=== PATIENT | female | born 1950 | race Caucasian/White ===

== ENCOUNTER → 2017-11-11 14:33 | Outpatient (REF) | payer MEDICARE, OTHER, SELFPAY ==
--- NOTE | 2017-11-11 12:20 | PAPFT_PTH ---
PATIENT: Cleopatra Adame LOC: [facility] U#:[id number] AGE/SX: 74/F ROOM: RE11/11/[address]: Becca Cope MD : 1950 BED: DIS: SPEC #: [id number] RECD: 11/12/17 12:44 STATUS: TEAGAN ESCOBAR #: [id number] NGOZI: 11/11/17 12:[address]: Becca Cope DEPT: [facility] Cytology RECD BY: Rosie Vila Tissues: 1 - CX/ENDOCX FOR PAP SMEARS Procedures: PAP THIN PREP/UVM Screening HPV DNA PROBE Comments: [id number]
== END ==
LOC: LBN 14:33
PROVIDERS: PCP Family Medicine; Visit Provider Family Medicine
DX: Z12.4 Encounter for screening for malignant neoplasm of cervix (principal); Z11.51 Encounter for screening for human papillomavirus (HPV)
CPT/HCPCS: 88142; 87624

== ENCOUNTER 2018-02-22 00:27 | Outpatient (CLI) | payer MEDICARE, OTHER, SELFPAY ==
--- NOTE | 2018-02-22 09:40 | DI.MAMMO_ITS ---
SYMPTOM/DIAGNOSIS: SCREENING Z12.31 MAMMOGRAM: 02/22 Mammograms were interpreted according to the usual protocol including computer analysis with CAD system, tomosynthesis and C view imaging. There are bilateral mammary implants. Implant displaced views and routine views were obtained. The examination is compared with previous examination of 02/2017. Note is again made of dense irregular capsular calcification associated with the implants. No new mass or clumped microcalcification identified in either breast. Breasts are of moderate density. CONCLUSION: No specific evidence of malignancy at this time. Routine screening examinations are suggested at yearly intervals in this age group according to the ACS/ACR guidelines. Category 1, breast density category B. MQSA ASSESSMENT OF FINDINGS: Negative. Category 1. Patient will receive a letter notifying them of these results. BI-RADS category B. There are scattered areas of fibroglandular density.
== END 2018-02-22 00:47 ==
PROVIDERS: PCP Family Medicine; Visit Provider Family Medicine
DX: Z12.31 Encounter for screening mammogram for malignant neoplasm of breast (principal); Z98.82 Breast implant status
CPT/HCPCS: 77063; 77067

== ENCOUNTER 2018-02-22 01:41 | Outpatient (CLI) | payer MEDICARE, SELFPAY ==
[2018-02-22 12:00] LABS: Iron 61 ug/dL (50-175)
[2018-02-22 12:19] LABS: ALT 28 U/L (12-78); AST 19 U/L (15-37); Albumin 4.1 g/dL (3.4-5.0); Alkaline Phosphatase 84 U/L (46-116); Anion Gap 10.7 mmol/L (3-11); BUN 26 mg/dL (7-18); Bilirubin, Total 0.4 mg/dL (0.2-1.0); CO2 27.3 mmol/L (21.0-32.0); CREATININE 1.02 mg/dL (0.55-1.02); Calcium 9.8 mg/dL (8.5-10.1); Chloride 102 mmol/L (98-107); Estimated GFR 54.39 (mL/min/1.73m2); Ferritin 134 ng/mL (8-388); Glucose 84 mg/dL (70-100); Magnesium 2.2 mg/dL (1.8-2.4); Potassium 4.6 mmol/L (3.5-5.1); Sodium 140 mmol/L (136-145); TSH 1.44 uIU/mL (0.358-3.74); Total Protein 7.8 g/dL (6.4-8.2)
== END 2018-02-22 02:01 ==
PROVIDERS: PCP Family Medicine; Visit Provider Family Medicine
DX: R25.2 Cramp and spasm (principal); L65.9 Nonscarring hair loss, unspecified
CPT/HCPCS: 36415; 80053; 82728; 83540; 83735; 84443

== ENCOUNTER 2019-04-19 01:31 | Outpatient (CLI) | payer MEDICARE, SELFPAY ==
--- NOTE | 2019-04-19 14:00 | DI.MAMMO_ITS ---
EXAM: MG MAMMO SCREENING 60 MIN DUR CLINICAL HISTORY: SCREENING, Z12.31. TECHNIQUE: Bilateral full field digital CC and MLO mammographic images were obtained with 3D tomosyn thesis and utilizing computer aided detection (CAD). Bilateral implant-displaced views were obtained. COMPARISON: Available for comparison. FINDINGS: Masses/Architectural Distortion: None seen. There are bilateral breast implants. These appear stable . Microcalcifications: No suspicious pleomorphic-type are seen. Skin Thickening/Nipple Retraction: None. IMPRESSION: 1. No significant interval change with no specific features of malignancy noted. 2. Unless there is more urgent need, screening mammography is recommended, as per [employer] guidelines. ACR BI-RAD Category- 1 Negative Breast Density - Category B - Scattered areas of fibroglandular density A negative radiographic report should not delay biopsy if a dominant or clinically suspicious mass is present. Up to ten percent of cancers are not identified on mammography. A negative report may reinforce clinical impression. Adenosis and dense breasts may obscure an underlying neoplasm. False positive reports average 6 to 10%. Patient will receive a letter notifying them of these results.
== END 2019-04-19 01:51 ==
PROVIDERS: PCP Family Medicine; Visit Provider Family Medicine
DX: Z12.31 Encounter for screening mammogram for malignant neoplasm of breast (principal); Z98.82 Breast implant status
CPT/HCPCS: 77063; 77067

== ENCOUNTER 2019-09-21 10:30 | Outpatient (CLI) | payer MEDICARE, SELFPAY ==
--- NOTE | 2019-09-21 14:30 | DI.RAD_ITS ---
EXAM: XR HIP RT COMPLETE AP PELVIS INDICATION: right hip pain, M25.551. COMPARISON: No exams were available for comparison TECHNIQUE: 2D digital imaging was performed. FINDINGS: The hip joint spaces are well maintained. There is mild bilateral acetabular spurring. There is mi ld spurring at the greater trochanters and iliac crests. Bilateral tubal ligation clips are incident ally noted. There is some spurring at the lower SI joints. IMPRESSION: Mild degenerative changes. DATA REPOSITORY: RADIATION DOSE DELIVERED:
== END 2019-09-21 10:50 ==
PROVIDERS: PCP Family Medicine; Visit Provider Family Medicine
DX: M25.551 Pain in right hip (principal); M16.11 Unilateral primary osteoarthritis, right hip
CPT/HCPCS: 73502

== ENCOUNTER → 2020-06-15 09:05 | Outpatient (BNVA) | payer MEDICARE, SELFPAY | PROVIDERS: PCP Family Medicine; Referring Provider Family Medicine; Visit Provider Physical Therapy Assistant | DX: Z12.11 Encounter for screening for malignant neoplasm of colon (principal); Z86.010 Personal history of colon polyps ==

== ENCOUNTER 2020-06-27 03:18 | Outpatient (CLI) | payer MEDICARE, SELFPAY ==
[2020-06-27 10:11] LABS: Source Nasal/Nares
[2020-06-27 12:05] LABS: COVID-19 PCR Negative (Negative)
== END 2020-06-27 03:19 | disposition home or self-care (01) ==
LOC: LBO 03:26
PROVIDERS: PCP Family Medicine; Visit Provider Surgery
DX: Z20.822 Contact with and (suspected) exposure to COVID-19 (principal); Z01.818 Encounter for other preprocedural examination
CPT/HCPCS: 87635

== ENCOUNTER 2020-06-29 09:00 | Day surgery (SDC) | payer MEDICARE, SELFPAY ==
[2020-06-29 09:09] VITALS: BP 150/98; PULSE 67; RESP 17; TEMP 36.4; O2SAT 100
[2020-06-29] MEDS: Lactated Ringers 1,000 ML 80 ML IV (09:38)
--- NOTE | 2020-06-29 10:55 | W.PM.DSUDISC ---
Discharge Plan Disposition Patient Disposition: HOME Condition: Good Discharge Details Reason For Visit: colon scope Attending Provider: Gi Brambila Primary Care Provider: Becca Cope Home Meds and New Rx's Prescriptions: Continued meloxicam 15 mg tablet 15 mg PO PRN RF: 0 aspirin [Adult Low Dose Aspirin] 81 mg tablet,delayed release (DR/EC) 81 mg PO DAILY RF: 0 trazodone 50 mg tablet 50 mg PO HS PRN (Reason: insomnia) Qty: 90 RF: 2 Discontinued polyethylene glycol 3350 17 gram/dose powder 238 g PO ONCE Qty: 238 RF: 0 bisacodyl [Dulcolax (bisacodyl)] 5 mg tablet,delayed release (DR/EC) 5 mg PO ONCE Qty: 4 RF: 0 Discharge Instructions Additional Instructions: Findings:Normal Follow up: Repeat in 5 years time if still healthy for anesthesia Please call if you develop: fevers >101.5 Nausea or Vomiting Abdominal pain that is not transient DAY SURGERY UNIT POST COLONOSCOPY INSTRUCTIONS 1. Because there will be medication in your system for the next 24 hours, you may feel a little sleepy. Your coordination will be affected. Therefore: a. Do not drive or operate dangerous equipment for 24 hours. b. Do not drink alcohol beverages for 24 hours (not even beer). c. Plan to go home and rest for the day. 2. Generally there are no restrictions on your activity after a day or so has gone by, but you may feel a bit fatigued for a few days. 3 After you arrive home you may have a light meal and return to a normal diet as you can tolerate it without feeling sick to your stomach. 4. After surgery, you may feel pain or discomfort. This should be only transient, but if it persists please contact your doctor. 5. If there are any questions regarding the findings of your procedure, please feel free to contact your doctor. 6. If you are unable to contact your doctor with a problem, contact the hospital at [phone]. 7. Continue all your regular medications unless directed otherwise. I understand the above instructions and have no questions. Signature of Patient or Responsible Adult Escort Date/Time Name of Responsible Adult Escort Signature of Nurse Date/Time Activity:: No lifting over 20 pounds or strenuous activity x24 hours. Diet:: Small light meals x24 hours Discharge Orders Discharge Orders: Discharge Order (Routine); Ordered 06/29/20 Ordered By: Gi Brambila DS: Diagnosis Discharge Diagnosis (1) Asthma: Status: Acute (2) Smoker: Status: Acute (3) Tubular adenoma: Status: Acute
--- NOTE | 2020-06-29 10:57 | W.COLOREPORT ---
Date of service: 06/29/20 Time of Service: 10:58 Colonoscopy Report Date of procedure: 06/29/20 Pre-op diagnosis general: A polyps Post-op diagnosis procedure note: other (normal) Surgeon: Gi Brambila Anesthesia Type: General:No Airway Estimated blood loss (mL): 0 Pathology: none sent Complications: None Disposition: same day Prep: Miralax/Dulcolax Retraction Time: 8 mins Procedure Description: After informed consent was obtained the patient was taken to the procedure room and placed in a left decubitous position. Monitors were applied and a time out was done. The patients name, date of , procedure, allergies to medications and metal in their body was reviewed. The patient was then sedated. Once sedated and comfortable a rectal exam was done. External exam was normal. Internal exam revealed a normal sphincter tone and no palpable masses. The scope was then introduced and retrofelexed. No internal hemorrhoids were identified. The scope was then advanced to the cecum w/out difficulty. The TI and appendiceal orifice were identified. The prep was good. The scope was then slowly retracted over 8 minutes back into the rectum. There were no polyps/AVMs/diverticula visualized today. The mucosa is pink and healthy. The scope was removed and the patient was woken up and taken back to Same day surgery in stable condition. The patient tolerated the procedure well and there were no immediate complications. Follow up: The patient should follow up in 10 years unless they develop changes in bowel habits or other new gastrointestinal complaints.
[2020-06-29 11:10] VITALS: BP 138/98; PULSE 53; RESP 16; TEMP 36.3; O2SAT 99
== END 2020-06-29 11:42 | disposition home or self-care (01) ==
PROVIDERS: PCP Family Medicine; Visit Provider Surgery
PROC: 0DJD8ZZ Inspection of Lower Intestinal Tract, Via Natural or Artificial Opening Endoscopic (ICD-10-PCS; CPT 45378; principal; 2020-06-29 10:00)
DX: Z12.11 Encounter for screening for malignant neoplasm of colon (principal); Z86.010 Personal history of colon polyps
CPT/HCPCS: G0121

== ENCOUNTER 2020-09-24 02:54 | Outpatient (CLI) | payer MEDICARE, SELFPAY ==
[2020-09-24 15:21] LABS: ALT 29 U/L (14-59); AST 16 U/L (15-37); Albumin 3.8 g/dL (3.4-5.0); Alkaline Phosphatase 83 U/L (46-116); Anion Gap 10.1 mmol/L (3-11); BUN 16 mg/dL (7-18); Bilirubin, Total 0.5 mg/dL (0.2-1.0); CO2 25.9 mmol/L (21.0-32.0); CREATININE 0.9 mg/dL (0.55-1.02); Chloride 107 mmol/L (98-107); Glucose 96 mg/dL (74-106); Potassium 4.6 mmol/L (3.5-5.1); Sodium 143 mmol/L (136-145)
== END 2020-09-24 02:55 | disposition home or self-care (01) ==
LOC: LOS 02:55
PROVIDERS: PCP Family Medicine; Visit Provider Family Medicine
DX: R25.2 Cramp and spasm (principal)
CPT/HCPCS: 36415; 80053

== ENCOUNTER 2020-12-26 10:35 | Outpatient (CLI) | payer MEDICARE, SELFPAY ==
--- NOTE | 2020-12-26 09:30 | DI.RAD_ITS ---
Exam(s) XR WRIST RT COMPLETE EXAM: XR WRIST RT COMPLETE CLINICAL HISTORY: RIGHT WRIST FRACTURE. TECHNIQUE: 2D digital imaging was performed. COMPARISON: No exams were available for comparison FINDINGS: Two in cast views of the right wrist reveal comminuted fracture of the distal radius which involves t he radiocarpal joint. For fracture fragments appear to be in satisfactory alignment. There is also fracture of the base of the ulnar styloid. Scapholunate distance is normal. No significant ulnar variance. IMPRESSION: DATA REPOSITORY: RADIATION DOSE DELIVERED:
== END 2020-12-26 10:36 | disposition home or self-care (01) ==
LOC: DIORS 10:35
PROVIDERS: PCP Family Medicine; Referring Provider Family Medicine; Visit Provider Physician Assistant
DX: S52.591A Other fractures of lower end of right radius, initial encounter for closed fracture; S52.691A Other fracture of lower end of right ulna, initial encounter for closed fracture; W01.0XXA Fall on same level from slipping, tripping and stumbling without subsequent striking against object, initial encounter
CPT/HCPCS: 99213; 73110

== ENCOUNTER 2021-01-02 11:19 | Outpatient (CLI) | payer MEDICARE, SELFPAY ==
--- NOTE | 2021-01-02 10:30 | DI.RAD_ITS ---
Exam(s) XR WRIST RT LIMITED EXAM: XR WRIST RT LIMITED CLINICAL HISTORY: R wrist fx. TECHNIQUE: 2D digital imaging was performed of the right wrist. Two views were obtained. PA and la teral views were obtained. COMPARISON: CR XR WRIST RT COMPLETE from 12/26/2020 FINDINGS: BONES: There has been no change in alignment of the comminuted intra-articular impacted fracture invo lving the distal right radius. No bony destructive lesion is seen. There is a stable ulnar styloid p rocess fracture. JOINTS: The carpal bones are normally aligned. SOFT TISSUE: Normal. The patient's wrist is in a cast. IMPRESSION: Stable distal right radial and ulnar fractures. DATA REPOSITORY: RADIATION DOSE DELIVERED:
== END 2021-01-02 11:20 | disposition home or self-care (01) ==
LOC: DIORS 11:19
PROVIDERS: PCP Family Medicine; Referring Provider Family Medicine; Visit Provider Physician Assistant
DX: S52.501D Unspecified fracture of the lower end of right radius, subsequent encounter for closed fracture with routine healing; S52.601D Unspecified fracture of lower end of right ulna, subsequent encounter for closed fracture with routine healing; X58.XXXD Exposure to other specified factors, subsequent encounter
CPT/HCPCS: 29085; 99213; 73100

== ENCOUNTER 2021-01-30 11:20 | Outpatient (CLI) | payer MEDICARE, SELFPAY ==
--- NOTE | 2021-01-30 11:15 | DI.RAD_ITS ---
Exam(s) XR WRIST RT LIMITED EXAM: XR WRIST RT LIMITED CLINICAL HISTORY: right distal radius and ulna fx f/u. TECHNIQUE: 2D digital imaging was performed. COMPARISON: CR XR WRIST RT LIMITED from 01/02/2021 FINDINGS: Again noted is a comminuted somewhat impacted fracture of the distal radius which is again noted to v iolate the radiocarpal joint. Also fracture of the ulnar styloid again noted with some displacement. No significant ulnar variance. Scapholunate distance is normal. IMPRESSION: Fractures as above. Minimal change from 01/02/2021 DATA REPOSITORY: RADIATION DOSE DELIVERED:
== END 2021-01-30 11:21 | disposition home or self-care (01) ==
PROVIDERS: PCP Family Medicine; Referring Provider Family Medicine; Visit Provider Student in an Organized Health Care Education/Training Program
DX: S52.591D Other fractures of lower end of right radius, subsequent encounter for closed fracture with routine healing (principal); S52.691D Other fracture of lower end of right ulna, subsequent encounter for closed fracture with routine healing; X58.XXXD Exposure to other specified factors, subsequent encounter
CPT/HCPCS: 99213; 73100

== ENCOUNTER 2021-03-12 08:22 | Outpatient (CLI) | payer MEDICARE, SELFPAY ==
--- NOTE | 2021-03-12 08:00 | DI.RAD_ITS ---
Exam(s) XR WRIST RT LIMITED EXAM: XR WRIST RT LIMITED CLINICAL HISTORY: right distal radius fx f/u. TECHNIQUE: 2D digital imaging was performed of the right wrist. Two views were obtained. PA and la teral views were obtained. COMPARISON: CR XR WRIST RT LIMITED from 01/30/2021 FINDINGS: BONES: There has been no change in the displaced ulnar styloid process fracture. There has been cont inued healing of the distal right radial fracture. No change in alignment of the fracture is noted. No new fracture is identified. No bony destructive lesion is seen. JOINTS: The carpal bones are normally aligned. SOFT TISSUE: Normal. IMPRESSION: Interval continued healing of the distal right radial fracture. Stable ulnar fracture. DATA REPOSITORY: RADIATION DOSE DELIVERED:
== END 2021-03-12 08:23 | disposition home or self-care (01) ==
LOC: DIORS 08:22
PROVIDERS: PCP Nurse Practitioner; Referring Provider Nurse Practitioner; Visit Provider Student in an Organized Health Care Education/Training Program
DX: S52.501P Unspecified fracture of the lower end of right radius, subsequent encounter for closed fracture with malunion (principal); S52.601P Unspecified fracture of lower end of right ulna, subsequent encounter for closed fracture with malunion; X58.XXXD Exposure to other specified factors, subsequent encounter
CPT/HCPCS: 99213; 73100

== ENCOUNTER 2021-04-12 15:20 | Outpatient (CLI) | payer MEDICARE, SELFPAY ==
--- NOTE | 2021-04-12 15:15 | RT.EKG_ITS ---
APPROVED REPORT Exam: Resting ECG Reason for Exam: chest discomfort Patient Location: O HR:58 bpm ECG Measurements Heart Rate 58 AXIS AR 177 P 57 QRSd 77 QRS 36 QT 454 T 50 QTc 445 Conclusion Sinus bradycardia...rate< 60 Normal Electrocardiogram
== END 2021-04-12 15:21 | disposition home or self-care (01) ==
LOC: DI.CM 15:20
PROVIDERS: PCP Nurse Practitioner; Visit Provider Family Medicine
DX: R07.89 Other chest pain (principal)
CPT/HCPCS: 93010

== ENCOUNTER 2021-04-29 01:14 | Outpatient (CLI) | payer MEDICARE, SELFPAY ==
--- NOTE | 2021-04-29 15:00 | ETT_ITS ---
APPROVED REPORT Exam: Exercise Treadmill Patient Location: Out-Patient Room/Bed: Stress Nurse: Sandra Rojas RN Ordering Provider:SYDNI VELIZ, Contact Number: [phone] BMI: 25.29 Baseline Rhythm: Sinus Rhythm Indications: Recurrent chest pain Medical History Medical History: Hypertension, past asthma Cardiac Medications: Losartan (starting today) Allergies: Penicillin Cardiac Risk Factors: Hypertension, past asthma, family hx Previous Cardiac Procedures: None Pretest Chest Pain Characteristics: 05/16 midsternal chest tightness Exercise History: Physically active Physical Disabilities: None Lung Sounds: Clear to auscultation Heart Sounds: Regular Stress Test Details Test: Exercise stress testing was performed using a Nikko protocol. Rest Stress HR Resting HR Supine: 61 bpm Max Heart Rate (APMHR): 152 bpm Resting HR Standin bpm Target HR (85% APMHR): 129 bpm Max HR Achieved: 141 bpm % of APMHR: 92 Recovery HR: 76 bpm HR response to stress: Normal HR response to stress BP Resting BP Supine: 192/90 mmHg Resting BP Standin/98 mmHg Max BP: 212/108 mmHg Recovery BP: 174/82 mmHg BP response to stress: Normal blood pressure response to stress. Comment: Pt changing from lisinopril to losartan today. ECG Resting ECG: Sinus Rhythm Ectopy: None Stress ECG: Sinus Tachycardia ST Change: No significant ST segment changes noted Arrhythmia: None Recovery ECG: Sinus Rhythm Recovery ST Change: No significant ST segment changes noted Recovery Arrhythmia: Occasional PVCs, brief burst of trigeminy Clinical Reason for Termination: Fatigue Stress Symptoms: General Fatigue, Dyspnea, Chest Tightness Exercise duration: 6 min57 sec Highest Stage Reached: Stage 3: 3.4 mph at 14% grade. Exercise capacity: 8.51 METs Beasley Treadmill Score: 2.2 Rate Pressure Product: 03337 Stress ECG Conclusion 1. Resting electrocardiogram was within normal limits 2. Patient exercised on the Nikko protocol and completed a workload of 8.51 METS 3. Resting hypertension. Normal hemodynamic response to exercise. The patient achieved 92% of predi cted heart rate for age 4. Chest tightness was present prior to the test, minimally increased during exercise, return to base line post exercise 5. Electrocardiographically there was no evidence of myocardial ischemia 6. Occasional PVCs were seen Beasley Treadmill Score is 2.2 which is Moderate risk. Stress Test Summary STAGE Time (mins) Speed (mph) Grade (%) HR BP SYMPTOMS METS Supine 61 192/90 Standing 64 190/98 Baseline chest tightness 2/10, SpO2 98% 1 3 1.7 10 105 202/94 SpO2 97% 4.6 2 6 2.5 12 133 206/96 SpO2 97% 7 3 9 3.4 14 141 Moderate SOB, SpO2 97% 10.2 1 min recovery 111 212/108 Chest tightness 3/10, SOB improving, SpO2 98% 3 min recovery 81 192/94 SOB resolved, SpO2 98% 6 min recovery 76 174/82 Chest tightness return to baseline 2/10, SpO2 98%
== END 2021-04-29 01:34 ==
PROVIDERS: PCP Nurse Practitioner; Visit Provider Family Medicine
DX: R07.9 Chest pain, unspecified (principal); I10 Essential (primary) hypertension; Z82.49 Family history of ischemic heart disease and other diseases of the circulatory system; I49.3 Ventricular premature depolarization
CPT/HCPCS: 36415; 80053; 80061; 85027; 93016; 93018; 84443; 93017

== ENCOUNTER 2021-04-29 03:43 | Outpatient (CLI) | payer MEDICARE, SELFPAY ==
[2021-04-29 14:38] LABS: HCT 43.6 % (36.0-46.0); HGB 14.2 g/dL (11.2-15.7); MCHC 32.6 % (32.0-36.0); MPV 9.9 fL (8.0-11.0); Platelet Count 274 10^3/uL (130-400); RBC 4.74 10^6/uL (3.93-5.22); RDW 13.2 % (11.7-14.6); RDW-SD 45.6 fL; WBC 6.35 10^3/uL (4.4-10.8)
[2021-04-29 15:57] LABS: ALT 27 U/L (14-59); AST 19 U/L (15-37); Alkaline Phosphatase 101 U/L (46-116); BUN 19 mg/dL (7-18); Bilirubin, Total 0.3 mg/dL (0.2-1.0); CREATININE 0.8 mg/dL (0.55-1.02); Calcium 9.5 mg/dL (8.5-10.1); Calculated LDL 117 mg/dL (<100); Chloride 100 mmol/L (98-107); Cholesterol 251 mg/dL (<200); Glucose 81 mg/dL (74-106); HDL Cholesterol 117 mg/dL (40-60); Potassium 4.1 mmol/L (3.5-5.1); Sodium 137 mmol/L (136-145); TSH (W/Ref FT4) 0.97 uIU/mL (0.36-3.74); Total Protein 7.7 g/dL (6.4-8.2); Triglyceride 85 mg/dL (<150)
== END 2021-04-29 03:44 | disposition home or self-care (01) ==
LOC: LBO 03:43
PROVIDERS: PCP Nurse Practitioner; Visit Provider Family Medicine
DX: I10 Essential (primary) hypertension (principal); R07.9 Chest pain, unspecified
CPT/HCPCS: 36415; 80053; 80061; 85027; 84443

== ENCOUNTER → 2021-06-14 10:34 | Outpatient (BNVA) | payer MEDICARE, SELFPAY | PROVIDERS: PCP Nurse Practitioner; Referring Provider Nurse Practitioner; Visit Provider Student in an Organized Health Care Education/Training Program | DX: G56.01 Carpal tunnel syndrome, right upper limb (principal) | CPT/HCPCS: 99214 ==

== ENCOUNTER 2021-07-15 01:19 | Outpatient (CLI) | payer MEDICARE, SELFPAY ==
--- NOTE | 2021-07-15 13:55 | DI.MAMMO_ITS ---
Exam(s) MG MAMMO SCREENING 60 MIN DUR EXAM: MG MAMMO SCREENING 60 MIN DUR CLINICAL HISTORY: breast cancer screening,z12.39 TECHNIQUE: Mammograms were interpreted according to the usual protocol including computer analysis w [employer] CAD system, tomosynthesis and C-view imaging. Implant displaced views were performed in addition to the routine views. COMPARISON: 2012 through 2019 FINDINGS: The breasts are composed of scattered fibroglandular densities, Breast Density category B. There are bilateral subglandular breast implants with peripheral calcification. The appearance is st able. No suspicious masses or suspicious microcalcifications are seen. No skin thickening or abnormal axillary lymph nodes are seen. There has been no significant change from prior exams. IMPRESSION: BI-RADS Category 1, Negative mammogram Yearly screening mammography is recommended. Breast Density - Category B, scattered fibroglandular densities. A negative radiographic report should not delay biopsy if a dominant or clinically suspicious mass is present. Up to ten percent of cancers are not identified on mammography. A negative report may reinforce clinical impression. Adenosis and dense breasts may obscure an underlying neoplasm. False positive reports average 6 to 10%. Patient will receive a letter notifying them of these results.
== END 2021-07-15 01:39 ==
PROVIDERS: PCP Nurse Practitioner; Visit Provider Family Medicine
DX: Z12.31 Encounter for screening mammogram for malignant neoplasm of breast (principal); Z98.82 Breast implant status
CPT/HCPCS: 77063; 77067

== ENCOUNTER 2021-07-15 02:07 | Outpatient (CLI) | payer MEDICARE, SELFPAY ==
[2021-07-15 09:35] LABS: Source Nasal/Nares
[2021-07-15 12:08] LABS: COVID-19 PCR Negative (Negative)
== END 2021-07-15 02:08 | disposition home or self-care (01) ==
LOC: LBO 02:07
PROVIDERS: PCP Nurse Practitioner; Visit Provider Student in an Organized Health Care Education/Training Program
DX: Z20.822 Contact with and (suspected) exposure to COVID-19 (principal); Z01.818 Encounter for other preprocedural examination
CPT/HCPCS: 87635; U0005

== ENCOUNTER 2021-07-16 06:20 | Day surgery (SDC) | payer MEDICARE, SELFPAY ==
[2021-07-16 06:38] VITALS: BP 135/87; PULSE 72; RESP 17; TEMP 36.2; O2SAT 96
[2021-07-16] MEDS: Lactated Ringers 1,000 ML 80 ML IV (06:47)
[2021-07-16] MEDS: CLINDAMYCIN 900 MG/50 ML BAG 50 MG IVPB (06:53)
--- NOTE | 2021-07-16 06:59 | W.ANESPRE ---
General Info Date of Service Date Performed: 07/16/21 Height: 5 ft 5 in Weight: 70.3 kg Body Mass Index (BMI): 25.7 Surgical Procedure: Operation Date: 07/16/21 07:40 Proposed Procedure Side Surgeon p Wrist ECTR Right Gallo Ornelas MD Meds Allergies and Home Medications Allergies Allergy/AdvReac Type Severity Reaction Status Date / Time Penicillins Allergy Anaphylaxsi Verified 07/16/21 06:44 s oxycodone AdvReac Mild NAUSEA Verified 07/16/21 06:44 Home Medication Medication Instructions Recorded trazodone 50 mg tablet 50 mg PO HS PRN #90 tab 11/26/20 fluoxetine 20 mg capsule 20 mg PO DAILY #90 cap 12/07/20 amlodipine 5 mg tablet 5 mg PO DAILY #30 tab 07/05/21 losartan 100 mg tablet 100 mg PO DAILY #90 tab 07/05/21 Current Visit Medications: Current Medications Generic Name Dose Route Start Last Admin Trade Name Freq PRN Reason Stop Dose Admin Ringer's Solution 1,000 mls @ 80 mls/hr 07/16/21 06:00 07/16/21 06:47 IV 08/14/21 23:59 80 mls/hr INFUSION [place] Administration Clindamycin Phosphate/Dextrose 900 mg in 50 mls @ 50 mls/hr 07/16/21 06:00 07/16/21 06:53 Cleocin In D5w IVPB 07/16/21 18:00 50 mls/hr PREOP IS[place] Administration IV Miscellaneous Supplies 1 each 07/16/21 06:00 Iv Access IV 08/14/21 23:59 DIRECTED [place] Sodium Chloride 0 ml 07/16/21 06:00 Normal Saline Flush 10 Ml Syr IV 08/14/21 23:59 PRN PRN Sodium Chloride 0 ml 07/16/21 06:00 Normal Saline 10 Ml Vial IJ 08/14/21 23:59 DIRECTED PRN Sterile Water 0 ml 07/16/21 06:00 Water,Injection,Sterile 10 Ml Vial IJ 08/14/21 23:59 DIRECTED PRN PFSH Active Problems Active Problems: Problem Status Onset Code Carpal tunnel syndrome, right G56.01 Hyperlipidemia E78.5 Tendon nodule M67.90 Grief F43.21 Essential hypertension I10 Asthma J45.909 Smoker F17.200 Tubular adenoma D36.9 Depressive disorder F32.9 Medical History Medical History Closed fracture of right distal radius and ulna (12/22/20) Kidney stone left Surgical History Surgical History Augmentation mammoplasty B/L History of colonoscopy (~06/29/20) Tobacco Smoking/Tobacco Use Status: Former Tobacco Use Passive smoking exposure: No Second hand exposure: No Alcohol Alcohol Intake: current Alcohol intake frequency: a few times a week Alcohol type: wine Substance Use Substance use: Never Substance use type: does not use Vital Signs and Lab Results Vital Signs Most Recent Vital Signs in EMR: Most Recent Vital Signs Temp Pulse Resp BP Pulse Ox 36.2 C L 72 17 135/87 96 07/16/21 06:38 07/16/21 06:38 07/16/21 06:38 07/16/21 06:38 07/16/21 06:38 Lab Results Blood Type / Crossmatch: No Data to Display Complete Blood Count: No Data to Display Complete Metabolic Panel: No Data to Display Liver Function Panel: No Data to Display Coagulation Panel: No Data to Display Cardiac Panel: No Data to Display Arterial Blood Gas: No Data to Display Venous Blood Gas: No Data to Display Pancreas Panel: No Data to Display Thyroid Panel: No Data to Display Infectious Disease: Coronavirus (COVID-19)(PCR) Negative (Negative) 07/15/21 09:20 07/15/21 Coronavirus 2019 Source Nasal/Nares 07/15/21 09:20 07/15/21 Blood Cultures: No Data to Display Toxicology Panel: No Data to Display Anesthesia Assessment and Plan Anesthesia History Personal History: No History of Anesthesia Complications Family History: No Family History of Anesthesia Complications Exercise Tolerance Exercise Tolerance: Metabolic Equivalents>4 Pertinent Negatives Pertinent Negatives: No Symptoms of GERD, No Major Cardiovascular Symptoms or Complaints, No Major Pulmonary Symptoms or Complaints and No History of CVA/TIA Cardiac & Pulmonary Exam Cardiac Exam: Normal S1/S2 Heart Sounds Pulmonary Exam: Clear Bilateral Breath Sounds Implantable Cardiac Device Does patient have a Pacemaker or an ICD?: No Airway Exam Known Difficult Airway: No Mallampati Class: 1 Mouth Opening: Normal (> 3cm) Thyromental Distance: Greater than 3 cm Neck Range of Motion: Full ROM Neck Circumference: Normal Teeth Condition: Normal Dentition ASA Classification ASA Score: ASA 2 Emergency Case?: No NPO Status NPO Status: NPO Clears >2 hours, Solids >8 hours Anesthesia Plan Resuscitation Status: Full Code Anesthesia Technique: General Anesthesia Airway Planned: Natural Airway Monitors Used: Standard Monitors
[2021-07-16 07:01] VITALS: BMI 25.7
--- NOTE | 2021-07-16 07:18 | HPE_ITS ---
Assessment and Plan Assessment and plan (1) Carpal tunnel syndrome, right: Status: Acute Assessment and plan: Cleopatra is a 71-year-old who is status post right distal radius fracture with and. She unfortunately developed worsening carpal tunnel syndrome. She has failed conservative, nonoperative, options and therefore is here for carpal tunnel release. Once again, reviewed carpal tunnel release in detail. I answered all of her questions. I reviewed the risk of the procedure to include bleeding, infection, pain, stiffness, continued numbness, continued symptoms, incomplete release, need for repeat procedures. Despite these risk, she elects to proceed. History of Present Illness Narrative: Cleopatra is a 71-year-old who has carpal tunnel syndrome about the right hand status post right distal radius nonunion. She has exhausted nonoperative options and is here today for endoscopic carpal tunnel release. Please see the previous office note for complete detailed history. She has no acute medical issues. No medical changes. Review of Systems All systems reviewed & are unremarkable except as noted in HPI and below PFSH All Active Problems Carpal tunnel syndrome, right (Acute) Hyperlipidemia (Acute) 04/2021- high HDL Tendon nodule (Acute) right palm Grief (Chronic) Essential hypertension (Acute) Asthma (Acute) Smoker (Acute) Tubular adenoma (Acute) 04/11/15; DR. MELGAR Depressive disorder (Acute) Medical History Closed fracture of right distal radius and ulna (12/22/20) Kidney stone left Surgical History Augmentation mammoplasty B/L History of colonoscopy (~06/29/20) Family History Mother Heart disease Stroke Father No problems noted. Sister No problems noted. Brother Neoplasm Grandfather Neoplasm ESOPHAGEAL Grandmother Stroke Social History Smoking/Tobacco Use Status: Former Tobacco Use Quit Date: 04/06/85 Second Hand Exposure: No Smoking risk assessment performed?: Yes Alcohol Intake: current Alcohol Intake frequency: a few times a week Alcohol type: wine Drug use: Never Substance use type: does not use Caregiver/Support person: No Housing: house Communication Needs: None Pets and animals: No Sexually active: No Do you think of yourself as: straight/heterosexual Current gender identity: female What is your relationship status?: How often do you talk on the phone with friends or family?: once per week How often do you attend shinto or temple services?: decline to answer Do you belong to any clubs or organized social groups?: no Panel score (0-1 are the most socially isolated patients): 0 What type of physical activity do you participate in: walking Frequency: daily Vicky/Hoahaoism: None Special vicky needs: No Seatbelt use: always Drive intox or ride w/intox street flusher driver: No Do you feel safe at home: Yes Additional Social history: lives alone Meds Allergies and Home Medications Allergies Allergy/AdvReac Type Severity Reaction Status Date / Time Penicillins Allergy Anaphylaxsi Verified 07/16/21 06:44 s oxycodone AdvReac Mild NAUSEA Verified 07/16/21 06:44 Home Medications Medication Instructions Recorded Confirmed Type trazodone 50 mg tablet 50 mg PO HS PRN #90 tab 11/26/20 07/16/21 Rx fluoxetine 20 mg capsule 20 mg PO DAILY #90 cap 12/07/20 07/16/21 Rx amlodipine 5 mg tablet 5 mg PO DAILY #30 tab 07/05/21 07/16/21 Rx losartan 100 mg tablet 100 mg PO DAILY #90 tab 07/05/21 07/16/21 Rx Exam Narrative Exam Narrative: No acute distress. Alert and orient x3. Resp Auscultation: clear to auscultation bilaterally Cardio Rate: regular rate Rhythm: regular rhythm Results Last Vital Signs Temp 36.2 C L 07/16/21 06:38 Pulse 72 07/16/21 06:38 Resp 17 07/16/21 06:38 BP 135/87 07/16/21 06:38 Pulse Ox 96 07/16/21 06:38
--- NOTE | 2021-07-16 07:21 | W.PM.DSUDISC ---
Discharge Plan Disposition Patient Disposition: HOME Condition: Good Discharge Details Reason For Visit: Right Carpal Tunnel Syndrome Attending Provider: Gallo Ornelas Primary Care Provider: pAarna Beck Home Meds and New Rx's Prescriptions: New acetaminophen 500 mg tablet 1,000 mg PO Q8H PRN (Reason: pain) Qty: 90 3RF ibuprofen 600 mg tablet 600 mg PO TID PRN (Reason: pain) Qty: 90 3RF Continued amlodipine 5 mg tablet 5 mg PO DAILY Qty: 30 0RF losartan 100 mg tablet 100 mg PO DAILY Qty: 90 3RF trazodone 50 mg tablet 50 mg PO HS PRN (Reason: insomnia) Qty: 90 2RF fluoxetine 20 mg capsule 20 mg PO DAILY Qty: 90 4RF Discharge Instructions Stand Alone Forms: Johnson Sharma Tunnel Release Referrals: Gallo Ornelas MD [ [facility] STAFF PHYSICIAN] - Activity:: Activity as Tolerated Remove Dressings/Wound Care:: 48 hours Shower/Bathe:: 48 hours Diet:: As Tolerated Discharge Orders Discharge Orders: Discharge Order (Routine); Ordered 07/16/21 Ordered By: Gallo Ornelas DS: Diagnosis Discharge Diagnosis (1) Carpal tunnel syndrome, right: Status: Acute
[2021-07-16] MEDS: Sodium Bicarbonate 50 MEQ/50 ML VIAL (07:34)
[2021-07-16 07:44] VITALS: BP 88/60; PULSE 65; RESP 16; TEMP 36.3; O2SAT 98
--- NOTE | 2021-07-16 08:11 | W.ANESPOSTOP ---
Postoperative Evaluation Date, Time and Location Date Performed: 07/16/21 Time Performed: 07:44 Patient Location: Day Surgery Unit Vital Signs Most Recent Imported Vital Signs: Most Recent Vital Signs Temp Pulse Resp BP Pulse Ox 36.3 C L 65 16 88/60 L 98 07/16/21 07:44 07/16/21 07:44 07/16/21 07:44 07/16/21 07:44 07/16/21 07:44 Pain Score Most Recent Pain Score: Most Recent Pain Score Pain Level 0 07/16/21 07:44 Assessment Mental Status: Awake (Alert & Oriented to Patient Baseline) Airway and Respiratory Function: Patent airway with normal (patient baseline) respiratory exam Cardiovascular Function: Hemodynamically Stable Hydration Status: Adequately Hydrated Nausea & Vomiting: No Nausea or Vomiting Pain: Pt. Denies Any Pain Peripheral Nerve Block: Patient did not receive a nerve block
[2021-07-16 08:28] VITALS: BP 104/77; PULSE 66; RESP 16; TEMP 36.4; O2SAT 97
--- NOTE | 2021-07-16 09:34 | NUR.NOTE ---
Nursing Note: 0915a: OBED Ro passed by Pt's room, Pt requested to use restroom. Aixa assisted her to the restroom. OBED Kruse then stepped into backroom of the unit kitchen, when she came out, Jia noticed the Pt's walking around the corner. Aixa wasn't able to catch the Pt before she got out the door. 0933a:Jayce in Security was notified by Tanya Dai RN, that Patient walked out of DSU by herself. Attempts were made by CHAO Martínez and Ann GUIDRY, to view patient outside of the hospital, she was not found. Pt's ride was notified again to request her to call DSU so we could ensure patient was able to connect with her responsible adult, since the Pt Left DSU unattended.
--- NOTE | 2021-07-16 22:45 | ROE_ITS ---
Date of service: 07/16/21 Time of Service: 07:45 Operative Note Operative Note PRE-OP DIAGNOSIS: Right Carpal Tunnel Syndrome POST-OP DIAGNOSIS: same PROCEDURE: Right Endoscopic Carpal Tunnel Release SURGEON: Gallo Ornelas ANESTHESIA TYPE: General:No Airway Refer to Anesthesia Record ESTIMATED BLOOD LOSS: 0 PATHOLOGY: none sent TOURNIQUET TIME: 5 COMPLICATIONS: None Patient was transported to: same day Patient's condition: stable Indications: I have seen Cleopatra in clinic for symptoms of carpal tunnel syndrome. The numbness, tingling, and pain limited function. Clinical exam findings with nerve conduction tests confirmed the diagnosis of carpal tunnel syndrome. Nonoperative measures such as bracing, time, activity modifications had been tried but disability and pain persisted. I discussed carpal tunnel release with the patient. I reviewed the risks of the procedure to include, but not limited to, bleeding, infection, pain, stiffness, incomplete release, damage to nerves or vessels, persistent numbness, recurrence. Despite these risks, the patient elected to proceed. Findings: There was tightened carpal tunnel. This was dilated and released successfully with the endoscopic with increased space within the tunnel. The antebrachial fascia was released proximally freeing the median nerve at the wrist. Procedure Description: Cleopatra was greeted in the preoperative holding area where the correct side was identified and marked. The consent was reviewed with the patient and signed. The history and physical was updated. All questions were answered. Cleopatra was taken back to the operating room. The patient was placed into the supine position on the operating room table with the right arm on an arm board. A nonsterile tourniquet was placed high onto the arm. All bony prominences were well padded. Prophylactic antibiotics in the form of Clindamycin were administered. The right arm was then prepped with Chloraprep and draped in a standard fashion with stockinette and extremity drape. A timeout to confirm correct identity, side and site, procedure, allergies, anesthesia, and medical concerns was performed. The surgical site was marked in the volar wrist creases in line with the radial border of the fourth ray. This area was anesthetized with approximately 6cc of 1% Lidocaine. The limb was then exsanguinated with an Esmarch. The skin was incised with a 15 blade, approximately 1cm. The skin only was cut and the deeper tissue was dissected bluntly with a tenotomy scissor, avoiding passing nerve and venous structures. The fascia was penetrated and opened bluntly. A two-prong skin hook was placed under this proximal fascial edge. A series of hamate finders were used to identify and dilate the carpal tunnel. Synovial elevator was used to free synovial attachments to the underside of the zamudio sverse carpal ligament. My thumb was kept in the palm to maggie the distal extent of the carpal tunnel and correctly position the hand. The Microaire endoscope was inserted without difficulty and without resistance. Excellent visualization showed horizontally running fibers of the transverse carpal ligament (TCL). The distal extent of the TCL was visualized and the end of the scope palpated with the thumb. The blade was elevated and withdrawn from distal to proximal. The TCL was split into two flaps. The endoscope was reinserted to confirm complete release and any remnant ligament was incised. The scope was withdrawn and the proximal aspect of the carpal tunnel was grossly inspected and appeared release with the median nerve visible. The antebrachial fascia at the level of the wrist was then freed from the overlying skin and then the underlying median nerve with blunt dissection. This was transected longitudinally for about 3cm proximal to the wrist incision. The wound was then irrigated with easy flow of irrigant distally and proximally. The incision was closed with a single 4-0 Nylon suture. The wound was dressed with Xeroform, Gauze, Kerlix and Bernard. The tourniquet was deflated with the initial dressing and held with some pressure. Blood flow returned easily to all digits with capillary refill less than 2 seconds. The patient tolerated the procedure well and was returned to the Same Day Surgery area in a stable condition suffering no known complication.
== END 2021-07-16 09:15 | disposition home or self-care (01) ==
PROVIDERS: PCP Nurse Practitioner; Visit Provider Student in an Organized Health Care Education/Training Program
PROC: 01N54ZZ Release Median Nerve, Percutaneous Endoscopic Approach (ICD-10-PCS; CPT 29848; principal; 2021-07-16 07:30)
DX: G56.01 Carpal tunnel syndrome, right upper limb (principal); I10 Essential (primary) hypertension; E78.5 Hyperlipidemia, unspecified; J45.909 Unspecified asthma, uncomplicated
CPT/HCPCS: 29848; J2001; J2704

== ENCOUNTER → 2021-07-26 09:42 | Outpatient (BNVA) | payer MEDICARE, SELFPAY | PROVIDERS: PCP Nurse Practitioner; Referring Provider Nurse Practitioner; Visit Provider Student in an Organized Health Care Education/Training Program | DX: G56.01 Carpal tunnel syndrome, right upper limb (principal) ==

== ENCOUNTER → 2021-09-09 08:40 | Outpatient (BNVA) | payer MEDICARE, SELFPAY | PROVIDERS: PCP Nurse Practitioner; Referring Provider Nurse Practitioner; Visit Provider Student in an Organized Health Care Education/Training Program | DX: G56.01 Carpal tunnel syndrome, right upper limb (principal) ==

== ENCOUNTER 2023-03-19 16:58 | Emergency (ER) | payer MEDICARE, SELFPAY ==
[2023-03-19] VITALS (39 sets, daily range): BP systolic 103–218; BP diastolic 39–198; PULSE 65–98; RESP 11–32; TEMP 36.8; O2SAT 94–100
--- NOTE | 2023-03-19 17:07 | W.ED.GENAD ---
Discharge Plan Disposition Patient Disposition: Home Condition: Stable Discharge Details Clinical Impression: Walking pneumonia Primary Care Provider: Zeina Norman ED Provider: Yannick Gutierrez Home Meds and New Rx's Prescriptions: New azithromycin 250 mg tablet 250 mg PO DAILY 4 Days Qty: 4 0RF Rx Instructions: start on day 2 of therapy doxycycline hyclate 100 mg tablet 100 mg PO BID 7 Days Qty: 14 0RF Continued atorvastatin 10 mg tablet 10 mg PO QHS Qty: 90 3RF losartan 100 mg tablet 100 mg PO DAILY Qty: 90 3RF trazodone 50 mg tablet 50 mg PO HS PRN (Reason: insomnia) Qty: 90 2RF amlodipine 10 mg tablet 10 mg PO DAILY Qty: 90 4RF fluoxetine 20 mg capsule 20 mg PO DAILY Qty: 90 4RF ibuprofen 600 mg tablet 600 mg PO TID PRN (Reason: pain) Qty: 90 3RF Discharge Instructions Instructions: Doxycycline (By mouth), Azithromycin (By mouth), Pneumonia (ED) Additional Instructions: You were seen in the emergency department for your cough of many weeks onset that is productive and had some specks of possible blood in your sputum today. Your D-dimer is age-adjusted negative I do not believe you have a blood clot in your lungs, you have no sharp chest pains and no significant shortness of breath and you are nontachycardic here in the department. This is likely a bacterial lower respiratory infection that I am going to treat with 2 different antibiotics to cover a wide range of bacterial pathogens. Please use therapeutic dosing of Tylenol (acetamenophen) & Advil (ibuprofen) in an alternating fashion as follows: Take 1000mg of Tylenol every 6 hours without missing doses- that is 4 times per day. [facility] in between the Tylenol dosings, take 400-600mg of Advil also on a 6 hour schedule, that is also 4 times per day. The daily maximum dosing of Tylenol is 4000mg, and the daily maximum dosing of Advil is 2400mg. This is safe to do for weeks. Please note that some common cold medications & prescription pain medications may contain acetamenophen and you need to read OTC drug labels and factor that in to maximum daily dosings. Take Mucinex to help loosen your mucus and expel any buildup in your lungs. Please return for any significant shortness of breath or fevers not responding to treatment or any increase in chest pain despite treatment. Referrals: Zeina Norman NP [Primary Care Provider] - Discharge Data Discharge Date/Time-TO BE ENTERED AT DEPARTURE: 03/19/23 20:34 Medical Decision Making This dictation utilizes [id number] dictation software and may contain unedited grammatical errors. 72 y/o F presents to ED today with a chief complaint of productive cough for the past few weeks, worse at night, coughed up some specks of blood in her sputum today. States deep breathing causes cough, feels uncomfortable but denies overt chest pain, coughing source of discomfort. Onset and characteristics include a few weeks of malaise and cough, feels like she cannot get fluid out. Patients' medical history: negative for cardiac or pulmonary history. Family and social history: nonsmoker. Pertinent exam findings / vital signs include lungs very coarse and rhonchorous, borderline pleural friction rub, no hypoxia, non-tachycardic, benign cardiac exam, neuro intact, benign abdomen, nontoxic vitals. Differential / pathologies of concern include PNA, walking PNA, bronchitis, PE, ACS, pneumonitis. Diagnostic studies of: -CBC, CMP, D-Dimer, Trop I, BNP, Mg++, EKG, CXR. -D-dimer age adjusted negative, YEARS criteria negative -CMP benign -Trop I neg -BNP neg, no R-heart strain -EKG shows no signs of ischemia -CXR shows no signs of pneumonia but I do question some opacity in lateral view @ base Interventions of: -DuoNeb, IVF, Outpatient ABX for cough lasting > 3 weeks. ED Course/Assessment/Plan: 72-year-old otherwise healthy female patient presents without hypoxia or tachycardia or chest pain with multiple weeks of cough and chest congestion. Cardiac studies are negative there is no overt focal pneumonia seen on her chest today read by V rad but I do question opacity on lateral lead at the base with the patient severely rhonchorous rhonchorous to auscultation I think it is reasonable to trial dual antibiotic therapy for pneumonia with azithromycin and doxycycline due to the patient's amoxicillin anaphylactic allergy. Counseled the patient on regular use of Tylenol and ibuprofen and strict return criteria for any further hemoptysis, chest pain or severe shortness of breath. Findings not consistent with sepsis, hypoxemic respiratory failure, ACS. Disposition of Walking Pneumonia. Patient verbalized understanding of the plan and return to ED criteria and engaged in shared decision making. Medical Records Medical records reviewed: Yes I reviewed the patient's medical records. Imaging Data Radiologic Study: Imaging: X-Ray Radiologist's impression: Exam: XR Chest Exam date and time: 03/19/2023 6:52 PM Age: 72 years old Clinical indication: Cough TECHNIQUE: Imaging protocol: Radiologic exam of the chest. Views: 2 views. COMPARISON: CR Shoulder - 2 Views 09/25/2016 10:58 AM FINDINGS: Tubes, catheters and devices: Breast implants noted. Lungs: Unremarkable. No consolidation. Pleural spaces: Unremarkable. No pleural effusion. No pneumothorax. Heart/Mediastinum: Unremarkable. No cardiomegaly. Vasculature: Aortic ectasia. Bones/joints: Right humeral head deformity consistent with previous fracture. IMPRESSION: No evidence for acute abnormality in the chest. Dictated and Authenticated by: Maeve Bernal MD. Ordering:GLEN Lanier MD Lab Data Lab results reviewed: Yes I reviewed the patient's lab results. Labs: 03/19/23 17:30 Blood Blood Culture - Pending 03/19/23 17:44 Blood Blood Culture - Pending Laboratory Tests Range/Units 03/19/23 03/19/23 17:30 17:40 WBC (4.4-10.8) 10^3/uL 6.28 RBC (3.93-5.22) 10^6/uL 4.62 Hgb (11.2-15.7) g/dL 13.8 Hct (36.0-46.0) % 41.0 MCV (80-95) fL 89 MCH (27.0-33.0) pg 29.9 MCHC (32.0-36.0) % 33.7 RDW (11.7-14.6) % 13.5 Plt Count (130-400) 10^3/uL 313 MPV (8.0-11.0) fL 9.4 Immature Gran % 0.2 Neutrophils % 43.6 Lymphocytes % 35.7 Monocytes % 10.0 Eosinophils % 9.2 Basophils % 1.3 Nucleated RBC % (0.0-0.3) % 0.0 Absolute Neutrophils (1.2-6.7) 10^3/uL 2.74 Absolute Lymphocytes (1.2-3.4) 10^3/uL 2.24 Absolute Monocytes (0.1-0.8) 10^3/uL 0.63 Absolute Eosinophils (0.0-0.7) 10^3/uL 0.58 Absolute Basophils (0.0-0.2) 10^3/uL 0.08 ESR (0-30) mm/hr 11 D-Dimer (<500) ng/mlFEU 501 H VBG Lactate (0.6-1.4) mmol/L 1.0 Sodium (136-145) mmol/L 140 Potassium (3.5-5.1) mmol/L 3.9 Chloride (98-107) mmol/L 105 Carbon Dioxide (21.0-32.0) mmol/L 26.8 Anion Gap (3-11) mmol/L 8.2 BUN (7-18) mg/dL 20 H Creatinine (0.55-1.02) mg/dL 0.9 Est GFR (CKD-EPI 2020) (mL/min/1.73m2) 68.77 Glucose (74-106) mg/dL 104 Calcium (8.5-10.1) mg/dL 9.3 Total Bilirubin (0.2-1.0) mg/dL 0.2 AST (15-37) U/L 17 ALT (14-59) U/L 32 Alkaline Phosphatase (46-116) U/L 119 H Troponin I (<or=60) ng/L < 50 C-Reactive Protein (0.0-0.3) mg/dL 0.10 NT-Pro-B Natriuret Pep (<300) pg/mL 23 Total Protein (6.4-8.2) g/dL 7.6 Albumin (3.4-5.0) g/dL 3.8 Procalcitonin ng/mL < 0.1 COVID-19 Source NASOPHARYNX SARS-CoV-2 (PCR) (Negative) Negative Monoscreen (Negative) Negative Influenza Type A (PCR) (Negative) Negative Influenza Type B (PCR) (Negative) Negative RSV (PCR) (Negative) Negative HPI General Date/Time Provider Initiated Documentation: 03/19/23 17:01. HPI Narrative: 72 year-old female presents to ED today by POV/ambulating with a chief complaint of wet cough and congestion for one month, had some flecks of blood in her sputum today. Quality described as irritation and burning sensation with cough in her chest, no radiation to significant SOB, nausea/vomiting, diarrhea, body aches, does endorse some SOB at night. Severity is described as 7/10. Palliating factors include OTC cold medicines without relief. Provoking factors include nothing specific. Patient not anticoagulated. Related Data Home Medications Medication Instructions Recorded Confirmed ibuprofen 600 mg tablet 600 mg PO TID PRN pain #90 tabs 07/16/21 03/20/23 atorvastatin 10 mg tablet 10 mg PO QHS #90 tabs 04/28/22 03/20/23 losartan 100 mg tablet 100 mg PO DAILY #90 tabs 04/28/22 03/20/23 trazodone 50 mg tablet 50 mg PO HS PRN insomnia #90 tabs 06/06/22 03/20/23 amlodipine 10 mg tablet 10 mg PO DAILY #90 tabs 09/15/22 03/20/23 fluoxetine 20 mg capsule 20 mg PO DAILY #90 caps 01/12/23 03/20/23 azithromycin 250 mg tablet 250 mg PO DAILY 4 days #4 tabs 03/19/23 03/20/23 doxycycline hyclate 100 mg tablet 100 mg PO BID pneumonia 7 days #14 03/19/23 03/20/23 tabs Previous Rx's Medication Instructions Recorded ibuprofen 600 mg tablet 600 mg PO TID PRN pain #90 tabs 07/16/21 atorvastatin 10 mg tablet 10 mg PO QHS #90 tabs 04/28/22 losartan 100 mg tablet 100 mg PO DAILY #90 tabs 04/28/22 trazodone 50 mg tablet 50 mg PO HS PRN insomnia #90 tabs 06/06/22 amlodipine 10 mg tablet 10 mg PO DAILY #90 tabs 09/15/22 fluoxetine 20 mg capsule 20 mg PO DAILY #90 caps 01/12/23 azithromycin 250 mg tablet 250 mg PO DAILY 4 days #4 tabs 03/19/23 doxycycline hyclate 100 mg tablet 100 mg PO BID pneumonia 7 days #14 03/19/23 tabs Allergies Allergy/AdvReac Type Severity Reaction Status Date / Time Penicillins Allergy Anaphylaxsi Verified 03/19/23 17:06 s oxycodone AdvReac Mild NAUSEA Verified 03/19/23 17:06 General Stated Complaint: RespSymp PARKER: 3 Review of Systems All systems reviewed & are unremarkable except as noted in HPI and below PFSH All Active Problems (Updated 03/19/23 @ 20:15 by CATY Berg) Walking pneumonia (Acute) Onychomycosis (Acute) Hyperlipidemia (Chronic) 04/2021- high HDL Tendon nodule (Acute) right palm Grief (Chronic) Essential hypertension (Chronic) Asthma (Chronic) Smoker (Acute) Tubular adenoma (Acute) 04/11/15; DR. MELGAR Depressive disorder (Acute) Medical History Closed fracture of right distal radius and ulna (12/22/20) Kidney stone left Surgical History Augmentation mammoplasty B/L Carpal tunnel syndrome, right S/P ECTR: 07/16/2021 History of colonoscopy (~06/29/20) Family History Mother Heart disease Stroke Father No problems noted. Sister No problems noted. Brother Neoplasm Grandfather Neoplasm ESOPHAGEAL Grandmother Stroke Social History (Updated 04/30/22 @ 16:38 by Cristy Lewis) Smoking/Tobacco Use Status: Former Tobacco Use Quit Date: 04/06/85 Second Hand Exposure: No Smoking risk assessment performed?: Yes Alcohol Intake: current Alcohol Intake frequency: a few times a week Alcohol type: wine Drug use: Never Substance use type: does not use Caregiver/Support person: No Household members: children Housing: house Communication Needs: None Pets and animals: No Sexually active: No Do you think of yourself as: straight/heterosexual Current gender identity: female What is your relationship status?: How often do you talk on the phone with friends or family?: once per week How often do you get together with friends or relatives?: decline to answer How often do you attend sikhism or mormon services?: decline to answer Do you belong to any clubs or organized social groups?: no Panel score (0-1 are the most socially isolated patients): 0 What type of physical activity do you participate in: walking Duration: 15-30 minutes/day Frequency: 3-4 times per week Vicky/Worship: None Special vicky needs: No Seatbelt use: always Drive intox or ride w/intox milk pickup driver: No Do you feel safe at home: Yes Additional Social history: lives alone Exam Narrative Exam Narrative: GENERAL APPEARANCE: Well-nourished, non-toxic, awake and alert, atraumatic, no acute distress. SKIN: Warm, pink, dry, intact, without rashes/lesions/ulcerations. HEAD: Normocephalic, atraumatic, normal hair distribution for gender/age. EYES: Pupils PERRLA, EOMs intact without nystagmus, normal conjunctiva, no exudates on lids/lashes. ENT: Nares patent, no circumoral cyanosis, no facial swelling NECK: Supple, trachea midline, painless cervical ROM. LUNGS/CHEST: Lungs coarse and adventitious with diffuse rhonchi bordering on pleural friction-rub, non-labored respirations, normal A/P diameter, symmetrical expansion, no chest wall deformity HEART (CV/PV): Regular rate and rhythm without murmur, no peripheral edema, no JVD. ABDOMEN: Soft, non-distended, no guarding. MSK: Normal ROM, no swelling/deformity to bilateral UEs or LEs, moving all extremities without weakness, no cyanosis, spine midline without tenderness, normal curvature. NEURO: Mental Status AAOx4 - alert to person, place, time, events No facial droop, no forehead involvement. Motor: No focal weakness - strength 5/5 in bilateral UEs and LEs, proximal and distal, symmetric. Sensory: sensation intact to light touch globally. Gait normal: patient ambulated without ataxia into ED room. PSYCH: euthymic, cooperative, pleasant, appropriate speech Course 03/19/23 17:15 Albuterol/Ipratropium [Duoneb Updraft] 3 ml UPD NOW ONE 03/19/23 17:16 ED EKG Stat EKG Nursing/RT Intervention .STAT 03/19/23 17:30 BNP [NT-proBNP] Stat CRP [C-Reactive Protein] Stat Comprehensive Metabolic Panel Stat Lactate Stat Procalcitonin Stat Troponin [Cardiac Troponin I] Stat D-Dimer [COAG] Stat Complete Blood Count w/Diff [HEMO] Stat COVID/FLU/RSV PCR [SERO] Stat Blood Culture ( Age => 10 Yrs) Stat 03/19/23 17:40 ESR [HEMO] Stat Falls Screening [SERO] Stat 03/19/23 18:18 Normal Saline [Saline 1000ml Bag] 1,000 ml IV BOLUS 03/19/23 18:30 XR chest 2V PA & lateral [RAD] Stat 03/19/23 20:17 Azithromycin [Zithromax] 500 mg PO TODAY ONE Doxycycline Hyclate [Vibramycin] 100 mg PO NOW ONE Vital Signs Vital signs: Vital Signs Temperature 36.8 C 03/19/23 17:04 Pulse 90 03/19/23 17:04 Respiratory Rate 18 03/19/23 17:04 Blood Pressure 147/95 H 03/19/23 17:04 Pulse Oximetry 98 03/19/23 17:04 Temperature 36.8 C 03/19/23 17:04 Temperature Source Oral 03/19/23 17:04 Pulse 90 03/19/23 17:04 Respiratory Rate 18 03/19/23 17:04 Blood Pressure 147/95 H 03/19/23 17:04 Blood Pressure Position Sitting 03/19/23 17:04 Pulse Oximetry 98 03/19/23 17:04 Oxygen Delivery Method Room Air 03/19/23 17:04 Oxygen Flow Rate 0 03/19/23 17:04 Pain Level 0 03/19/23 17:04
--- NOTE | 2023-03-19 17:15 | RT.EKG_ITS ---
APPROVED REPORT Exam: Resting ECG Reason for Exam: chest pain, cough Patient Location: E HR:63 bpm ECG Measurements Heart Rate 63 AXIS CO 178 P 31 QRSd 76 QRS 66 QT 432 T 70 QTc 444 Conclusion Sinus rhythm...normal P axis, V-rate 60- 99 NSR normal axis, normal intervals NO STEMI no significant changes from previous
[2023-03-19] MEDS: Albuterol/Ipratropium 3 ML UPD VIAL UPD (17:45)
[2023-03-19 17:50] LABS: Abs Immature Grans 0.01 10^3/uL (0.0-0.06); Absolute Basophil Count 0.08 10^3/uL (0.0-0.2); Absolute Eosinophil Count 0.58 10^3/uL (0.0-0.7); Absolute Lymphocyte Count 2.24 10^3/uL (1.2-3.4); Absolute Monocyte Count 0.63 10^3/uL (0.1-0.8); Absolute Neutrophil Count 2.74 10^3/uL (1.2-6.7); Basophils % 1.3; Eosinophils % 9.2; HGB 13.8 g/dL (11.2-15.7); Immature Grans % 0.2; Lymphocytes % 35.7; MCH 29.9 pg (27.0-33.0); MCHC 33.7 % (32.0-36.0); MCV 89 fL (80-95); MPV 9.4 fL (8.0-11.0); Neutrophils % 43.6; Platelet Count 313 10^3/uL (130-400); RBC 4.62 10^6/uL (3.93-5.22); RDW 13.5 % (11.7-14.6); RDW-SD 44.1 fL; WBC 6.28 10^3/uL (4.4-10.8)
[2023-03-19 17:52] LABS: ESR 11 mm/hr (0-30)
[2023-03-19 17:56] LABS: Mono Screening Negative (Negative)
[2023-03-19 18:09] LABS: Troponin I < 50 ng/L (<or=60)
[2023-03-19 18:14] LABS: ALT 32 U/L (14-59); AST 17 U/L (15-37); Albumin 3.8 g/dL (3.4-5.0); Alkaline Phosphatase 119 U/L (46-116); Anion Gap 8.2 mmol/L (3-11); BUN 20 mg/dL (7-18); Bilirubin, Total 0.2 mg/dL (0.2-1.0); CO2 26.8 mmol/L (21.0-32.0); CREATININE 0.9 mg/dL (0.55-1.02); Calcium 9.3 mg/dL (8.5-10.1); Chloride 105 mmol/L (98-107); Estimated GFR 68.77 (mL/min/1.73m2); Glucose 104 mg/dL (74-106); Potassium 3.9 mmol/L (3.5-5.1); Sodium 140 mmol/L (136-145); Total Protein 7.6 g/dL (6.4-8.2)
[2023-03-19 18:26] LABS: D-Dimer 501 ng/mlFEU (<500)
[2023-03-19 18:28] LABS: COVID-19 PCR Negative (Negative); Influenza A PCR Negative (Negative); Influenza B PCR Negative (Negative); RSV PCR Negative (Negative); Source NASOPHARYNX
--- NOTE | 2023-03-19 18:30 | DI.RAD_ITS ---
Exam(s) XR CHEST 2V PA LATERAL EXAM: XR CHEST 2V PA LATERAL CLINICAL HISTORY: cough TECHNIQUE: 2D digital imaging was performed. COMPARISON: No exams were available for comparison FINDINGS: HEART: Normal size. Aorta: Not dilated. Mildly tortuous. PULMONARY VASCULATURE: Normal. LUNGS: Clear. PLEURAL SPACE: No pleural effusion or pneumothorax. BONE:Unremarkable for age. Soft tissues: Unremarkable. IMPRESSION: No acute abnormality. DATA REPOSITORY: RADIATION DOSE DELIVERED:
[2023-03-19 18:38] LABS: NT-proBNP 23 pg/mL (<300)
[2023-03-19 18:39] LABS: Procalcitonin < 0.1 ng/mL
[2023-03-19] MEDS: Normal Saline 1,000 ML 1000 ML IV (19:04)
--- NOTE | 2023-03-19 20:03 | DI.VRAD_ITS ---
PROCEDURE INFORMATION: Exam: XR Chest Exam date and time: 03/19/2023 6:52 PM Age: 72 years old Clinical indication: Cough TECHNIQUE: Imaging protocol: Radiologic exam of the chest. Views: 2 views. COMPARISON: CR Shoulder - 2 Views 09/25/2016 10:58 AM FINDINGS: Tubes, catheters and devices: Breast implants noted. Lungs: Unremarkable. No consolidation. Pleural spaces: Unremarkable. No pleural effusion. No pneumothorax. Heart/Mediastinum: Unremarkable. No cardiomegaly. Vasculature: Aortic ectasia. Bones/joints: Right humeral head deformity consistent with previous fracture. IMPRESSION: No evidence for acute abnormality in the chest. Dictated and Authenticated by: Maeve Bernal MD. Ordering:GLEN Lanier MD
[2023-03-19] MEDS: Doxycycline Hyclate 100 MG CAP PO (20:35)
[2023-03-19] MEDS: Azithromycin 250 MG TAB 500 MG PO (20:35)
== END 2023-03-19 20:34 | disposition home or self-care (01) ==
PROVIDERS: Emergency Provider Physician Assistant; PCP Nurse Practitioner Family
DX: J18.9 Pneumonia, unspecified organism (principal); R05.9 Cough, unspecified; R06.02 Shortness of breath; R07.9 Chest pain, unspecified; I77.819 Aortic ectasia, unspecified site; Z79.899 Other long term (current) drug therapy; E78.5 Hyperlipidemia, unspecified; I10 Essential (primary) hypertension; Z72.0 Tobacco use; J45.909 Unspecified asthma, uncomplicated
CPT/HCPCS: 80053; 84145; 85652; 87040; 87637; 93005; 94640; 99285; 71046; 83605; 83880; 84484; 85025; 85379; 86140; 86308; 93010; 99284; J7620

== ENCOUNTER 2023-04-27 04:57 | Outpatient (CLI) | payer MEDICARE, SELFPAY ==
[2023-04-27] MEDS: Levalbuterol HFA 15 GM INH 4 PUFF IH (11:57)
[2023-04-27] MEDS: Inhaler, Assist Device 1 EACH MC (11:58)
--- NOTE | 2023-04-27 14:06 | W.PFT ---
Date of service: 04/27/23 Time of Service: 10:17 Pulmonary Function Test Result Indications: Nocturnal Wheeze Interpretation Spirometry: There is no airflow limitation. There is a significant bronchodilator response. Lung Volumes: Normal lung volumes Diffusion Capacity: Normal diffusion Airway Pressure: Increased airways resistance Impression There is a bronchodilator response with increased airways resistance lending to a diagnosis of asthma. Clinical Correlation therefore is recommended.
== END 2023-04-27 04:58 | disposition home or self-care (01) ==
LOC: RT 04:57
PROVIDERS: PCP Nurse Practitioner Family; Visit Provider Family Medicine
DX: J45.909 Unspecified asthma, uncomplicated (principal); R94.2 Abnormal results of pulmonary function studies
CPT/HCPCS: 94060; 94726; 94729

== ENCOUNTER 2023-08-03 05:38 | Outpatient (CLI) | payer MEDICARE, SELFPAY ==
[2023-08-03 13:04] LABS: Calculated LDL 84 mg/dL (<100); Cholesterol 227 mg/dL (<200); HDL Cholesterol 135 mg/dL (40-60); Triglyceride 41 mg/dL (<150)
== END 2023-08-03 05:39 | disposition home or self-care (01) ==
LOC: LBO 05:38
PROVIDERS: PCP Nurse Practitioner Family; Visit Provider Nurse Practitioner Family
DX: E78.5 Hyperlipidemia, unspecified (principal); F32.9 Major depressive disorder, single episode, unspecified
CPT/HCPCS: 36415; 80061

== ENCOUNTER 2024-07-12 10:51 | Outpatient (CLI) | payer MEDICARE, SELFPAY ==
--- NOTE | 2024-07-12 10:45 | DI.RAD_ITS ---
Exam(s) XR CHEST 2V PA LATERAL EXAM: XR CHEST 2V PA LATERAL CLINICAL HISTORY: R05.9 Cough x 1 month, SOB TECHNIQUE: 2D digital imaging was performed. Two views. COMPARISON: CR,XR XR CHEST 2V PA LATERAL from 03/19/2023 FINDINGS: HEART: Normal size. Aorta: Not dilated. PULMONARY VASCULATURE: Normal. MEDIASTINUM: Unremarkable. LUNGS: Clear. PLEURAL SPACE: No pleural effusion or pneumothorax. BONE:Unremarkable for age. SOFT TISSUES: Unremar breast implants. IMPRESSION: No acute abnormality. DATA REPOSITORY: RADIATION DOSE DELIVERED:
== END 2024-07-12 11:11 ==
LOC: DI 10:51
PROVIDERS: PCP Nurse Practitioner Family; Visit Provider Nurse Practitioner Family
DX: R05.9 Cough, unspecified (principal)
CPT/HCPCS: 71046

== ENCOUNTER 2024-07-12 12:22 | Outpatient (CLI) | payer MEDICARE, SELFPAY ==
[2024-07-12 12:49] LABS: HCT 44.2 % (36.0-46.0); HGB 14.3 g/dL (11.2-15.7); MCHC 32.4 % (32.0-36.0); MCV 93 fL (80-95); MPV 9.2 fL (8.0-11.0); Platelet Count 302 10^3/uL (130-400); RBC 4.77 10^6/uL (3.93-5.22); RDW 13.7 % (11.7-14.6); RDW-SD 46.5 fL; WBC 6.02 10^3/uL (4.4-10.8)
[2024-07-12 15:00] LABS: ALT 39 U/L (14-59); AST 20 U/L (15-37); Alkaline Phosphatase 90 U/L (46-116); Anion Gap 10.4 mmol/L (3-11); BUN 15 mg/dL (7-18); Bilirubin, Total 0.4 mg/dL (0.2-1.0); CO2 26.6 mmol/L (21.0-32.0); CREATININE 0.8 mg/dL (0.55-1.02); Calcium 9.6 mg/dL (8.5-10.1); Calculated LDL 107 mg/dL (<100); Chloride 105 mmol/L (98-107); Cholesterol 231 mg/dL (<200); Estimated GFR 78.24 (mL/min/1.73m2); Glucose 87 mg/dL (74-106); HDL Cholesterol 113 mg/dL (>or=50); Potassium 4.5 mmol/L (3.5-5.1); Sodium 142 mmol/L (136-145); Total Protein 7.7 g/dL (6.4-8.2); Triglyceride 59 mg/dL (<150)
== END 2024-07-12 12:23 | disposition home or self-care (01) ==
LOC: LBO 12:22
PROVIDERS: PCP Nurse Practitioner Family; Visit Provider Nurse Practitioner Family
DX: E78.5 Hyperlipidemia, unspecified; I10 Essential (primary) hypertension; J45.21 Mild intermittent asthma with (acute) exacerbation; F32.9 Major depressive disorder, single episode, unspecified
CPT/HCPCS: 36415; 80053; 80061; 85027; 71046

== ENCOUNTER 2024-08-18 01:13 | Outpatient (CLI) | payer MEDICARE, SELFPAY ==
--- NOTE | 2024-08-18 07:30 | DI.MAMMO_ITS ---
Exam(s) MG MAMMO SCREENING 60 MIN DUR EXAM: MG MAMMO SCREENING 60 MIN DUR CLINICAL HISTORY: breast cancer screening,H/O IMPLANTS,z12.31 TECHNIQUE: Bilateral full field digital CC and MLO mammographic images were obtained with 3D tomosyn thesis and utilizing computer aided detection (CAD). COMPARISON: Available for comparison. FINDINGS: Masses/Architectural Distortion: There are stable bilateral breast implants. No suspicious masses or areas of architectural distortion are present. Microcalcifications: No suspicious pleomorphic-type are seen. Skin Thickening/Nipple Retraction: None. IMPRESSION: 1. No significant interval change with no specific features of malignancy noted. 2. Unless there is more urgent need, screening mammography is recommended, as per [employer] guidelines. BI-RADS Category 1 - Negative Breast Density - Category B - There are scattered areas of fibroglandular density. Breast density category C or D implies that the patient has dense breast tissue. Dense breast tissue is very common and is not abnormal but dense breast tissue can make it harder to find cancer on a ma mmogram. Also, dense breast tissue may increase their breast cancer risk. This information about the result of the mammogram report was provided to the patient to raise their awareness. Use this report when you speak with the patient about their risks for breast cancer, which includes their family hist ory. At that time, you may recommend for more screening tests (Ultrasound or MRI) as they might be us eful based on their risk. A negative radiographic report should not delay biopsy if a dominant or clinically suspicious mass is present. Up to ten percent of cancers are not identified on mammography. A negative report may reinforce clinical impression. Adenosis and dense breasts may obscure an underlying neoplasm. False positive reports average 6 to 10%. Patient will receive a letter notifying them of these results.
== END 2024-08-18 01:33 ==
LOC: DI 01:13
PROVIDERS: PCP Nurse Practitioner Family; Visit Provider Nurse Practitioner Family
DX: Z12.31 Encounter for screening mammogram for malignant neoplasm of breast (principal); R92.323 Mammographic fibroglandular density, bilateral breasts
CPT/HCPCS: 77063; 77067